=== PATIENT | female | born 1940 | race Caucasian/White ===

== ENCOUNTER → 2018-02-12 18:09 | Outpatient (CLI) | payer MEDICARE ==
[2018-03-15 20:08] LABS: AEROBE ID Final report (()); RESULT 1 Escherichia coli (())
== END | disposition home or self-care (01) ==
LOC: D.LABREF 18:09
PROVIDERS: Urology
DX: N39.0 Urinary tract infection, site not specified (principal)

== ENCOUNTER → 2018-03-03 11:19 | Outpatient (CLI) | payer MEDICARE ==
[2018-03-03 12:46] LABS: CREATININE - SERUM 0.8 mg/dL (0.6-1.3)
[2018-03-14 18:06] LABS: AEROBE ID Final report (()); RESULT 1 Escherichia coli (())
[2018-03-15 17:11] LABS: AEROBE ID Final report (()); RESULT 1 Escherichia coli (())
== END | disposition home or self-care (01) ==
LOC: D.LAB 11:19 → D.CT 13:00
PROVIDERS: Urology
DX: K36 Other appendicitis (principal); N39.0 Urinary tract infection, site not specified

== ENCOUNTER → 2018-03-10 08:03 | Outpatient (CLI) | payer MEDICARE | END | disposition home or self-care (01) | LOC: D.RAD 08:03 | DX: K63.2 Fistula of intestine (principal) ==

== ENCOUNTER → 2018-03-19 16:56 | Outpatient (CLI) | payer MEDICARE | END | disposition home or self-care (01) | LOC: D.LABREF 16:56 | DX: N39.0 Urinary tract infection, site not specified (principal) ==

== ENCOUNTER → 2018-04-02 17:13 | Outpatient (CLI) | payer MEDICARE | END | disposition home or self-care (01) | LOC: D.LABREF 17:13 | DX: N39.0 Urinary tract infection, site not specified (principal) ==

== ENCOUNTER 2018-05-07 07:29 | Day surgery (SDC) | payer MEDICARE ==
[~2018-05-07] VITALS: Ht 162.6 cm; Wt 68.0 kg
--- NOTE | ~2018-05-07 | OP ---
PATIENT NAME: PER CHEUNG MEDICAL RECORD: [id number] :39 LOCATION:D.OPS ADMISSION DATE: SURGEON: SENAIT OSHEA MD DATE OF OPERATION: 05/07/2018 PREOPERATIVE DIAGNOSIS: Cecal mass by CT scan. POSTOPERATIVE DIAGNOSES: 1. Cecal mass by CT scan with no evidence of a cecal mass at endoscopy. 2. Sessile polyp, 9 mm, within the cecum. PROCEDURES: 1. Total colonoscopy to cecum. 2. Hot biopsy forceps polypectomy times 1. The risks, possible complications and alternatives to procedure were explained to the patient. She elects to proceed. The discussion specifically included, but was not limited to, bleeding requiring emergency reoperation, infection, endoscopic perforation and the possible need for an additional operative procedure in the future should a cecal mass be identified. The patient was referred by Dr. Ann. ENDOSCOPIC COURSE: The patient was conveyed to the operating room electively on 05/07/2018. General anesthesia was induced by the anesthesia staff. The patient was placed in the Morrison position. A digital rectal examination was performed. A colonoscope was inserted through the anus. It was easily advanced to the cecum. The prep was inadequate. Upon withdrawal, I irrigated and aspirated it extensively. I scrutinized the cecum very carefully and noted no cecal masses; however, there was one cecal polyp, which was removed utilizing the hot biopsy forceps polypectomy technique. I slowly withdrew the endoscope. I dragged the folds. A combination of normal imaging and narrow band imaging were utilized. The pullback was greater than 18-minute pullback. A retroflexed view was obtained in the rectum. I then unretroflexed the scope and removed it under direct vision. The patient was then conveyed to post-anesthesia care unit where she was in stable condition. I will plan to see her in my office in 2-3 weeks. Due to the inadequate prep, she likely needs to come back in 1-2 years for repeat colonoscopy as regardless of the pathology on the polypoid specimen. TRANSINT:[id number] Voice Confirmation ID: [id number] DOCUMENT ID: [id number] SENAIT OSHEA MD at 1816 CC: SENAIT ANN MD and ANNA MARIE CASTLE [id number] DICTATION DATE: 05/08/18 1101 ANALYTICAL TECHNICIAN: 05/08/18 1244 [facility] [place] 05/07/18 [facility] [address] [id number]
[~2018-05-07 07:29] MED LIST: ACETAMINOPHEN500 M1 PO; AMOXICILLIN500 M1 PO; SUPER B COMPLE150 MG PO; ZESTRIL20 MG PO
[2018-05-07 08:09] LABS: HEMOGLOBIN 11.3 g/dL (12-16); MCH 31.2 pg (26.0-34.0); MCHC 33.2 g/dL (31.0-37.0); MCV 93.9 fL (80.0-100.0); RBC 3.62 10x6/uL (4.00-5.40); RDW 12.6 % (11.5-14.5); WBC 5.2 10x3/uL (4.8-10.8)
[2018-05-07 08:52] VITALS: Ht 162.6 cm; Wt 68.0 kg
[2018-06-07] MEDS ORDERED: K-TAB10 MEQ PO (09:20)
== END 2018-05-07 16:00 | disposition home or self-care (01) ==
LOC: D.OPS 07:29 → D.PAN 08:00 → D.OPS 08:00
PROVIDERS: Anesthesiology
DX: D12.0 Benign neoplasm of cecum (principal); Z01.812 Encounter for preprocedural laboratory examination

== ENCOUNTER → 2018-05-14 08:42 | Outpatient (CLI) | payer MEDICARE ==
[~2018-05-14 08:42] MED LIST changes: +K-TAB10 MEQ PO
== END | disposition home or self-care (01) ==
LOC: D.CT 08:42
DX: R10.31 Right lower quadrant pain (principal)

== ENCOUNTER 2018-06-08 08:50 | Day surgery (SDC) | payer MEDICARE ==
[2018-06-07 10:07] LABS: HEMATOCRIT 35.3 % (36.0-48.0); HEMOGLOBIN 11.8 g/dL (12-16); MCH 31.3 pg (26.0-34.0); MCHC 33.4 g/dL (31.0-37.0); MCV 93.6 fL (80.0-100.0); MEAN PLATELET VOLUME 9.7 fL (7.4-10.4); RBC 3.77 10x6/uL (4.00-5.40); RDW 12.8 % (11.5-14.5)
[~2018-06-08] VITALS: Ht 162.6 cm; Wt 70.3 kg
--- NOTE | ~2018-06-08 | OP ---
PATIENT NAME: PER CHEUNG MEDICAL RECORD: [id number] :39 LOCATION:DJoséOPS ADMISSION DATE: SURGEON: SENAIT OSHEA MD DATE OF OPERATION: 06/08/2018 PREOPERATIVE DIAGNOSIS: Left inguinal lymphadenopathy. POSTOPERATIVE DIAGNOSIS: Left inguinal lymphadenopathy. PROCEDURE: Excisional biopsy of left inguinal lymph nodes. SURGEON: Senait Oshea MD WOOD ROOM HAND: None. BLOOD LOSS: Minimal. ANESTHESIA: General. COMPLICATIONS: None. The risks, possible complications, and alternatives to the procedure were explained to the patient. She elects to proceed. The discussion specifically included, but was not limited to, bleeding, requiring an emergency reoperation; infection; seroma formation; lymphocele; or lymphatic drainage. The patient was conveyed to the operating room electively on 06/08/2018. General anesthesia was induced by the anesthesia staff. The patient's lower abdomen, thighs, and genitals were sterilely prepped and draped. Utilizing the real-time ultrasound, I was able to make an ultrasonographic examination of the area in question and I noted, on ultrasound, multiple enlarged lymph nodes. An incision was accomplished near the inguinal ligament. I dissected then to a lymph bebeto packet. A single lymph node was excised utilizing the Harmonic scalpel. There was another collection of matted lymph nodes that was then excised with the Harmonic scalpel as well. The Harmonic scalpel was utilized in order to help decrease the chance of a lymphocele. It was also used as a hemostatic device. Several small veins were cauterized with the Harmonic scalpel. Guillermo was added to the wound for additional hemostasis. The incision was closed with multiple interrupted 3-0 Vicryls for the deep dermis as well as a running intracuticular 4-0 Vicryl for the skin. A sterile dressing was then applied. The patient was then extubated and conveyed to the postanesthesia care unit, where she was in stable condition. TRANSINT:[id number] Voice Confirmation ID: [id number] DOCUMENT ID: [id number] OPERATIVE REPORT [id number] PER CHEUNG SENAIT OSHEA MD at 1240 CC: [id number] DICTATION DATE: 06/17/18 1434 MANAGER SOCIAL WORK: 06/17/18 1736 [facility] 06/08/18 [facility] [address] [place] [address]
[2018-06-08 09:49] VITALS: BP 142/48; Ht 162.6 cm; Wt 70.3 kg
== END 2018-06-08 18:40 | disposition home or self-care (01) ==
LOC: D.OPS 08:50 → D.PAN 11:45 → D.OPS 11:45
PROVIDERS: Anesthesiology
DX: R59.1 Generalized enlarged lymph nodes (principal)

== ENCOUNTER → 2019-02-11 16:33 | Outpatient (CLI) | payer MEDICARE ==
[2018-06-08 09:49] VITALS: BMI 26.6
== END | disposition home or self-care (01) ==
LOC: D.LABREF 16:33
PROVIDERS: ATTEND Urology
DX: D72.829 Elevated white blood cell count, unspecified (principal)

== ENCOUNTER → 2019-02-17 11:25 | Outpatient (CLI) | payer MEDICARE ==
[~2019-02-17 11:25] MED LIST changes: +CO Q-10200 MG PO; +HYDROCODON-ACE1 EA10 PO
== END | disposition home or self-care (01) ==
LOC: D.CT 11:25
DX: N20.0 Calculus of kidney (principal)

== ENCOUNTER → 2019-02-28 14:10 | Outpatient (CLI) | payer MEDICARE ==
[2018-06-08 09:49] VITALS: BMI 26.6
== END | disposition home or self-care (01) ==
LOC: D.RAD 14:10
PROVIDERS: ATTEND Urology
DX: N20.0 Calculus of kidney (principal)

== ENCOUNTER 2019-03-10 10:00 | Day surgery (SDC) | payer MEDICARE ==
[2019-03-09 15:09] LABS: BASOPHILS 0.4 % (0-2); EOSINOPHILS 9.7 % (0-7); HEMATOCRIT 36.9 % (36.0-48.0); HEMOGLOBIN 12.5 g/dL (12-16); LYMPHOCYTES 35.9 % (15-50); MCH 31.8 pg (26.0-34.0); MCHC 33.9 g/dL (31.0-37.0); MCV 93.9 fL (80.0-100.0); MEAN PLATELET VOLUME 9.7 fL (7.4-10.4); PLATELET COUNT 282 10x3/uL (130-400); RBC 3.93 10x6/uL (4.00-5.40); RDW 12.9 % (11.5-14.5); WBC 5.3 10x3/uL (4.8-10.8)
[2019-03-09 15:30] LABS: APTT 28.5 SECONDS (22.8-39.4); INR 0.91 (0.85-1.17); PROTIME 11.8 SECONDS (11.6-15.0)
[~2019-03-10] VITALS: Ht 162.6 cm; Wt 70.8 kg
[~2019-03-10 10:00] MED LIST changes: -HYDROCODON-ACE1 EA10 PO
[2019-03-10 10:59] VITALS: BP 138/64; Ht 162.6 cm; Wt 70.8 kg
[2019-03-10] MEDS ORDERED: HYDROCODON-ACE1 EA10 PO (13:22)
--- NOTE | 2019-03-10 16:44 | NUR ---
1600 IV DC'D. CATHETER INTACT. NO BLEEDING AT SITE. BANDAID APPLIED. 1610 DR. CARTY IN PT'S ROOM TALKING ABOUT ACTIVITY AND PAIN CONTROL. PT TELLING THAT SHE IS DRIVING A STANDARD SHIFT TO GO TO HER [employer]. 1630 PT'S RIDE IS AT [facility]. PT FINISHING GETTING CLOTHES ON.
--- NOTE | 2019-03-10 17:13 | OP ---
PATIENT NAME: PER CHEUNG MEDICAL RECORD: [id number] :39 LOCATION:[facility] ADMISSION DATE: SURGEON: MARIO ALBERTO CARTY MD DATE OF OPERATION: 03/10/2019 PREOPERATIVE DIAGNOSES: 1. Rotator cuff tear of the right shoulder. 2. Impingement syndrome of the right shoulder. 3. Acromioclavicular arthritis, right shoulder. POSTOPERATIVE DIAGNOSES: 1. Rotator cuff tear of the right shoulder. 2. Impingement syndrome of the right shoulder. 3. Acromioclavicular arthritis, right shoulder. 4. Severe biceps tendinitis. PROCEDURES: 1. Arthroscopic rotator cuff repair, right shoulder. 2. Arthroscopic biceps tenotomy, right shoulder. 3. Arthroscopic distal clavicle excision done through separate incision -- 1 cm. 4. Arthroscopic subacromial decompression, acromioplasty and bursectomy. SURGEON: Mario Alberto Carty MD ANESTHESIA: General. INTRAOPERATIVE COMPLICATIONS: None. SUMMARY OF PATHOLOGIC FINDINGS: The patient was indeed found to have a full thickness rotator cuff tearing and severe biceps tenotomy, fairly sharp downward sloping acromion and grade IV acromioclavicular arthropathy. OPERATIVE SUMMARY IN DETAIL: After obtaining the appropriate preoperative orthopedic surgery consent as well as anesthetic consultation, evaluation and clearance, the patient was brought to the operating room and placed on the operating table in supine position. After general laryngeal mask airway was administered, the patient was placed in lateral decubitus position. All pressure points were well padded to include down leg peroneal pad as well as axillary roll. The patient was held firmly to the operating table using the vacuum pack suction system. Down leg peroneal pad was also provided as well as axillary roll padding. Right upper extremity and shoulder were then prepped and draped in routine sterile fashion. The arm was held in the Arthrex traction boom at 30 degrees of forward flexion, 30 degrees of abduction, and 10 pounds of traction laterally. Arthroscopy was established in the glenohumeral joint from the posterior portal. Anterior portal was established in the anterior safe interval. A transarthroscopic rotator cuff tear portal was created through which the [place] tissue ablation system from [employer] was utilized to perform a tenotomy at the bicipital labral junction; however, the biceps did not retract. Intra-articular portion of the biceps tendon was taken down as it was almost completely half. At this point, the undersurface tearing of the rotator cuff was debrided and the footprint supraspinatus tendon was decorticated on the articular aspect. Some labral tearing was noted and some grade II chondromalacia was seen. Attention was turned to the subacromial space. While on subacromial space, [place] tissue ablation system was utilized to denude the OPERATIVE REPORT [id number] SKYEPER JERMANBECKYAI undersurface of the acromion of all soft tissue elements and release the coracoacromial ligament. A 5-0 barrel bur was used to perform acromioplasty at the level of the acromioclavicular joint. Having completed this, distal clavicle was excised through a separate arthroscopic portal under direct arthroscopic visualization. Attention was then returned to the rotator cuff. Having taken down all the rest of the patient's subacromial bursitis, further decortication was carried out by inverted FiberTape, which was anchored laterally with a 5.5 SwiveLock from [employer]. A second inverted suture was placed posterior to this one somewhat of a dog ear. This was then also anchored with a 4.75 SwiveLock from [employer] resulting in excellent rotator cuff repair. Having completed this, arthroscopy portals were closed in routine interrupted fashion using 4-0 Prolene. Sterile dressings were applied. The patient was awakened and taken to recovery room in stable condition. All final needle and sponge counts were correct. TRANSINT:[id number] Voice Confirmation ID: [id number] DOCUMENT ID: [id number] CARLOZ SHEIKH, MARIO ALBERTO SENIOR at 1713 CC: [id number] DICTATION DATE: 03/10/19 1328 SOCIAL MEDIA EDITOR: 03/10/19 1436 [facility] 03/10/19 [id number] [place] [id number]
== END 2019-03-10 16:35 | disposition home or self-care (01) ==
LOC: D.OPS 10:00 → D.PAN 12:30 → D.OPS 16:35 → D.PAN 17:00
PROVIDERS: Anesthesiology; ATTEND Orthopaedic Surgery
DX: M75.121 Complete rotator cuff tear or rupture of right shoulder, not specified as traumatic (principal); M75.41 Impingement syndrome of right shoulder; M13.811 Other specified arthritis, right shoulder; M75.21 Bicipital tendinitis, right shoulder; Z01.812 Encounter for preprocedural laboratory examination

== ENCOUNTER 2019-04-07 07:40 | Day surgery (SDC) | payer MEDICARE ==
[2019-04-06 09:16] LABS: HEMATOCRIT 35.9 % (36.0-48.0); MCH 31.6 pg (26.0-34.0); MCHC 33.4 g/dL (31.0-37.0); MCV 94.5 fL (80.0-100.0); MEAN PLATELET VOLUME 9.1 fL (7.4-10.4); RBC 3.8 10x6/uL (4.00-5.40); WBC 8.3 10x3/uL (4.8-10.8)
[~2019-04-07] VITALS: Ht 162.6 cm; Wt 70.8 kg
[~2019-04-07 07:40] MED LIST changes: +HYDROCODON-ACE1 EA10 PO
[2019-04-07 07:52] VITALS: BP 164/64; Ht 162.6 cm; Wt 70.8 kg
--- NOTE | 2019-04-07 12:04 | NUR ---
OK TO DC HOME AND TAKE B/P MED PER ANESTHESIA
--- NOTE | 2019-04-07 12:20 | NUR ---
REC'D FROM RR. NO FAMILY AT BEDSIDE. FL TRAY BROUGHT TO PATIENT.
--- NOTE | 2019-04-07 12:50 | NUR ---
TOLERATED FL DIET. NO URGE TO VOID AT THIS TIME.
--- NOTE | 2019-04-07 13:05 | NUR ---
AMBULATED TO BATHROOM. VOIDED WITHOUT DIFFICULTY.
--- NOTE | 2019-04-07 13:20 | NUR ---
IV DC'D WITH CATHETER INTACT. TRANSPORTATION CALLED. MESSAGE LEFT FOR CALL BACK. PATIENT RELATED HER TRANSPORTATION CALLED HER BACK AND RELATED HE COULD NOT COME SO HER OTHER NEIGHBOR IS COMING TO PICK HER UP.
--- NOTE | 2019-04-07 13:45 | NUR ---
VERBAL AND WRITTEN DC INST. GIVEN TO PATIENT ALONG WITH RX. VERBALIZED UNDERSTANDING.
--- NOTE | 2019-04-07 13:50 | NUR ---
DC'D HOME WITH FRIEND VIA PRIVATE VEHICLE. TAKEN TO VEHICLE VIA WC. STABLE AT TIME OF DC.
--- NOTE | 2019-04-07 14:21 | OP ---
PATIENT NAME: PER CHEUNG MEDICAL RECORD: [id number] :39 LOCATION:D.OPS ADMISSION DATE: SURGEON: BONILLA ANN MD DATE OF OPERATION: 04/07/2019 SURGEON: Bonilla Ann MD ANESTHESIA: General anesthesia by Anderson Merrill MD DIAGNOSES: Right lower pole 9-mm stone, solitary right kidney. PROCEDURES: Cystoscopy, right ureteral stent insertion of 6-Malaysian x 22 cm with string attached, and right extracorporeal shockwave lithotripsy (ESWL) times 3000 shocks. FINDINGS: Faintly radiodense right lower pole renal stone. SPECIMENS: None. BLOOD LOSS: None. CLINICAL HISTORY: This is a 78-year-old female who has a solitary right kidney. Last year, she had a radiolucent 6-mm stone in the kidney. We attempted to dissolve her stone with potassium citrate and it did not dissolve. Therefore, it is not likely to be uric acid in composition. On her latest followup, the CT scan shows that the stone is now 9 mm in size. The stone is radiodense on KUB. It is faintly radiodense. She comes today to have cystoscopy, right ureteral stent insertion, and right ESWL. SHE IS ALLERGIC TO ADHESIVE TAPE, CODEINE, DEMEROL, MORPHINE, AND CORN. She was given Ancef on-call to the OR. DESCRIPTION OF PROCEDURE: The patient was given induction of general anesthesia. She was then placed into dorsal lithotomy position. We performed cystoscopy. The bladder shows no tumors. Single ureteral orifices are seen on each side. The stone was seen under fluoroscopy as a faint radiodensity in lower pole of the right kidney. A Sensor wire was placed into the right ureteral orifice and put up in the renal pelvis. Over the wire, we inserted the 6-Malaysian x 22-cm ureteral stent. Once the stent was in correct position, the wire was withdrawn entirely. The distal end of the stent was pushed into the bladder using the pusher. The bladder was then emptied through the cystoscope sheath and then the scope was removed. The string on the distal end of the stent was maintained. It was taped to the suprapubic area with a piece of Tegaderm. We then targeted her lower pole renal stone on the right side in 2 planes. 3000 shocks were given to the stone and it was seen to break up. I will see her in follow up in 2 weeks' time with a KUB. If the KUB shows that she is stone free, then we can proceed with removal of the stent by pulling on the string. TRANSINT:[id number] Voice Confirmation ID: [id number] DOCUMENT ID: [id number] OPERATIVE REPORT [id number] PER CHEUNG ROBERT S MD at 1421 CC: [id number] DICTATION DATE: 04/07/19 1125 [employer] MEDIA SPECIALIST: 04/07/19 1342 [facility] [place] 04/07/19 [id number] [place] [address]
== END 2019-04-07 13:50 | disposition home or self-care (01) ==
LOC: D.OPS 07:40 → D.PAN 08:20 → D.OPS 08:30 → D.PAN 08:30 → D.OPS 09:15 → D.PAN 09:30 → D.OPS 09:40 → D.PAN 09:40 → D.OPS 13:50
PROVIDERS: Anesthesiology; ATTEND Urology
DX: N20.0 Calculus of kidney (principal); Z90.5 Acquired absence of kidney; Z88.5 Allergy status to narcotic agent; Z01.812 Encounter for preprocedural laboratory examination

== ENCOUNTER → 2019-04-21 10:16 | Outpatient (CLI) | payer MEDICARE ==
[2019-04-07 07:52] VITALS: BMI 26.8
== END | disposition home or self-care (01) ==
LOC: D.RAD 10:16
PROVIDERS: ATTEND Urology
DX: I10 Essential (primary) hypertension (principal)